=== PATIENT | female | born 1990 | race Caucasian/White ===

== ENCOUNTER 2021-06-15 18:45 | Emergency (ER) | payer OTHER ==
[2021-06-15 19:18] LABS: BILIRUBIN NEGATIVE (NEGATIVE); BLOOD NEGATIVE Ery/uL (NEGATIVE); CLARITY CLEAR (CLEAR); COLOR YELLOW (YELLOW); GLUCOSE (U) NORMAL (NORMAL); LEUKOCYTES NEGATIVE Leu/uL (NEGATIVE); NITRITE NEGATIVE (NEGATIVE); PROTEIN NEGATIVE (NEGATIVE); SPECIFIC GRAVITY >=1.030 (1.001-1.030); UROBILINOGEN 0.2 mg/dL (0.2-1.0)
[2021-06-15 20:15] LABS: BASOPHIL 0.1 % (0-2); EOSINOPHIL 2.6 % (0-5); HCT 39.3 % (37.0-47.0); HGB 12.2 g/dl (12.5-16.0); LYMPHOCYTE 22.7 % (15-48); MCH 28.5 pg (25.0-31.0); MCV 91.8 fL (78.0-100.0); MONOCYTE 8.3 % (0-12); MPV 9.5 fL (6.0-9.5); NEUTROPHIL 66.1 % (41-80); NRBC 0; PLT 268 K/uL (150-400); RBC 4.28 M/uL (4.20-5.40); RDW 14.1 % (11.5-14.0); WBC 8.8 K/uL (4.0-10.5)
[2021-06-15 20:34] LABS: ALBUMIN 3.2 g/dL (3.4-5.0); BILIRUBIN - TOTAL 0.2 mg/dL (0.2-1.0); CREATININE 0.91 mg/dL (0.51-0.95); GLOBULIN (CALCULATION) 3.8 g/dL; POTASSIUM 4.3 mmol/L (3.5-5.1)
== END 2021-06-15 21:08 | disposition home or self-care (01) ==
LOC: FER 18:45
PROVIDERS: Emergency Medicine
DX: R10.10 Upper abdominal pain, unspecified (principal); I10 Essential (primary) hypertension; Z90.49 Acquired absence of other specified parts of digestive tract; Z79.899 Other long term (current) drug therapy
CPT/HCPCS: 36415; 80053; 81003; 83690; 85025; 96372; 99284; J1200; J1630